=== PATIENT | female | born 1980 | race Caucasian/White ===

== ENCOUNTER 2016-07-26 05:36 | Day surgery (SDC) | payer BC, OTHER ==
[2016-07-23 17:00] VITALS: BMI 40.0
[2016-07-26] MEDS ORDERED: MIDAZOLAM HCL 2 MG/2 ML SINGLE DOSE VIAL ONE ×3 (08:38→09:15)
[2016-07-26] MEDS ORDERED: SUCCINYLCHOLINE CHLORIDE 200 MG/10 ML VIAL ONE (08:39)
[2016-07-26] MEDS ORDERED: PROPOFOL 20 ML ONE ×2 (08:39)
[2016-07-26] MEDS ORDERED: VASOPRESSIN 20 UNITS/ML VIAL IV ONE (08:42)
[2016-07-26] MEDS ORDERED: BACITRACIN/POLYMYXIN OPH OINT 3.5 GM TUBE ONE (08:42)
[2016-07-26] MEDS ORDERED: ceFAZolin SODIUM 1 GM VIAL IVPB ONE (09:00)
[2016-07-26] MEDS ORDERED: oxyCODONE HCL 5 MG TABLET PO PRN ×2 (09:48→10:42)
--- NOTE | 2016-07-26 09:48 | OP ---
Operative Note - Note: Operative Date: 07/26/16 Pre-Operative Diagnosis: stress urinary incontinence Operation: cysto, suburethral sling placement Findings: GRACIELA Implants: Altiss sling Post-Operative Diagnosis: Same as Pre-op Surgeon: Cornel Melendez Anesthesia: Spinal Estimated Blood Loss (mls): 5 Drains & Tubes with Location: 16[address] [facility] Operative Report Dictated: Yes
[2016-07-26] MEDS ORDERED: ELECTROLYTE-148 SOLN 1,000 ML IV SCH (10:00)
[2016-07-26] MEDS ORDERED: ONDANSETRON 4 MG/2 ML VIAL IVPUSH PRN (10:42)
[2016-07-26] MEDS ORDERED: LACTATED RINGERS SOLUTION 1,000 ML IV SCH ×2 (10:45→13:15)
--- NOTE | 2016-07-26 12:44 | OP ---
DATE OF OPERATION: PREOPERATIVE DIAGNOSIS: Stress urinary incontinence. POSTOPERATIVE DIAGNOSIS: Stress urinary incontinence. PROCEDURE: Cystoscopy, suburethral sling placement. SURGEON: Cornel Schneider MD INDICATIONS: The patient is a 36-year-old female with significant stress urinary incontinence who after given treatment options elected to undergo suburethral sling placement with the sling. She understood the risk of bleeding, infection, erosion, stricture formation, potential injury to adjacent organs, potential need for additional procedures, possible persistence of urinary incontinence, and potential De Nilson urge incontinence. She also was made aware of the warning on the mesh material. DESCRIPTION OF PROCEDURE: After informed consent was obtained, the patient was taken to the OR and placed supine on the operating room table. A spinal anesthetic was then given. She was prepped and draped in dorsal lithotomy position. She was given 2 g of Ancef. At this point then a Bowman catheter was inserted. The dressing was injected in the vaginal epithelium suburethrally, and a midline suburethral incision was created approximately 2 cm in length under the urethra. The vaginal epithelium was dissected free from the urethra bilaterally, and using blunt dissection, a space was created so that using digital palpation the obturator membrane could be palpated. This was done bilaterally. At this point with the dissection carried out, attention was turned to inserting the sling. First on the patient's right side, the appropriate trocar was attached to the end of the sling. The trocar was placed at the appropriate angle and pushed until it was tucked in the obturator membrane. At this point, it was given a slight push and a gentle twist to secure the anchor in the patient's established, antibiotics had been given. At this point, the cystoscope was inserted into the patient's obturator membrane. The trocar was then removed, and a gentle tugging of the sling revealed that it was stationary and adequate placement of the anchor. At this point, attention was turned to the patient's left side. In a similar fashion, the trocar was attached to the anchor and using the appropriate angle placed into the incision until the obturator membrane was felt. The trocar was then advanced a little bit to trace the obturator membrane and then twist it a half turn. The trocar was then removed. Again, a gentle tug on the sling revealed that there was adequate placement of the anchor. At this point, a right-angle clamp was placed between the sling and the patient's urethra. It was snug, but it was tension free. At the clamp of the kidneys, I the sling from the urethra. Cystoscopy was then performed. There was no injury to the urethra or the bladder, and bilateral ureteral orifices were seen with efflux. At this point, after filling up the bladder with 200 mL of urine, the patient was asked to cough and sneeze. No incontinence was noted. The excess stitch on the sling was then cut. A Bowman catheter was then reinserted, and the vaginal epithelium was closed with running 2-0 Vicryl suture and then the vaginal packing was then placed. The patient was awoken from anesthesia and transferred to the recovery room in stable condition. There were no complications. Estimated blood loss was 5 mL. CORNEL SCHNEIDER M.D. [id number]
[2016-07-26] MEDS ORDERED: ONDANSETRON 4 MG/2 ML VIAL ONE (13:13)
[2016-07-26 13:15] VITALS: TEMP 98.6
[2016-07-26] MEDS ORDERED: ACETAMINOPHEN 325 MG TABLET (FP) ONE (14:57)
[2016-07-26 18:07] VITALS: BP 144/84; PULSE 84
== END 2016-07-26 18:08 | disposition home or self-care (01) ==
LOC: JASU-SURG 05:36
PROVIDERS: ATTEND Urology
PROC: 0TSD0ZZ Reposition Urethra, Open Approach (ICD-10-PCS; principal; 2016-07-26 08:30)
DX: N39.3 Stress incontinence (female) (male) (principal)
CPT/HCPCS: 94760

== ENCOUNTER 2016-10-26 09:48 | Day surgery (SDC) | payer BC, OTHER ==
[2016-10-24 16:27] VITALS: BMI 40.0
[~2016-10-26 09:48] MED LIST: LIDOCAINE HCL 0.5% EPINEPHRINE 1:200,000 50 ML VIAL IJ ONE; MICROFIBRILLAR COLLAGEN 1 GM EACH ONE
[2016-10-26] MEDS ORDERED: MIDAZOLAM HCL 2 MG/2 ML SINGLE DOSE VIAL ONE ×2 (11:40)
[2016-10-26] MEDS ORDERED: SUCCINYLCHOLINE CHLORIDE 200 MG/10 ML VIAL ONE (11:45)
[2016-10-26] MEDS ORDERED: PROPOFOL 20 ML ONE (11:45)
[2016-10-26] MEDS ORDERED: LIDOCAINE HCL/PF 2% SDV 5ML VIAL ONE (11:45)
[2016-10-26] MEDS ORDERED: ceFAZolin SODIUM 1 GM VIAL IVPB ONE (11:54)
[2016-10-26] MEDS ORDERED: HYDROmorphone HCL/PF 1 MG/ML VIAL (FOR PYXIS CHARGING ONLY) ONE (13:18)
[2016-10-26] MEDS ORDERED: DEXAMETHASONE SOD PHOSPHATE 4 MG/1 ML VIAL ONE (13:30)
[2016-10-26] MEDS ORDERED: LACTATED RINGERS SOLUTION 1,000 ML IV SCH (13:45)
[2016-10-26] MEDS ORDERED: ONDANSETRON 4 MG/2 ML VIAL IVPUSH PRN (13:55)
[2016-10-26] MEDS ORDERED: oxyCODONE HCL 5 MG TABLET PO PRN (13:55)
[2016-10-26] MEDS ORDERED: ACETAMINOPHEN 325 MG TABLET (FP) PO PRN (13:55)
--- NOTE | 2016-10-26 14:20 | OP ---
DATE OF OPERATION: 10/26/2016 SURGICAL ATTENDING: Obi Bui MD SECOND SURGICAL ATTENDING: Iraj Leach MD PREOPERATIVE DIAGNOSIS: Right thyroid nodule. POSTOPERATIVE DIAGNOSIS: Right thyroid nodule. ANESTHESIA: General endotracheal. PROCEDURE: Right hemithyroidectomy and neck ultrasound. DESCRIPTION OF PROCEDURE: Patient was taken into the operating room, placed in the supine position, endotracheally intubated. The eyes were protected. Neck ultrasound was performed, showing a right thyroid nodule which replaced most of the right thyroid lobe but showed no extracapsular extension. No lymphadenopathy was seen and no significant nodule was seen in the contralateral left lobe. The patient was then prepped and draped in the usual sterile fashion. Local anesthesia was administered and a 4-cm horizontal incision was made in a mid neck skin crease. This was carried down through subcutaneous tissues and platysma. Subplatysmal flaps were raised superiorly and inferiorly flap hooks were placed for exposure. The median raphe was incised and the strap muscles on the right side were elevated off the thyroid gland. The recurrent laryngeal nerve and superior laryngeal nerves were identified, dissected, and preserved. The superior, posterior, and inferior attachments were transected with the LigaSure. Every effort was made to preserve the parathyroid glands. The isthmus was transected with a LigaSure and in this way the right thyroid lobe was removed. It was examined for parathyroid tissue and none was found. Hemostasis was achieved with electrocautery and Avitene. The wound was then closed in 3 layers. Sterile dressings were placed. The patient was then awakened, extubated, and taken to recovery in stable condition. Dr. Bui, the attending surgeon, was present throughout the entire procedure. OBI BUI M.D. [id number]
[2016-10-26 16:41] VITALS: TEMP 99
[2016-10-26] MEDS ORDERED: ACETAMINOPHEN 325 MG TABLET (FP) ONE (16:45)
[2016-10-26 18:26] VITALS: BP 125/81; PULSE 86
--- NOTE | 2016-10-29 17:39 | PATH ---
Surgical Pathology Report Patient Name: MIKEY LYNN [facility]. Rec. #: [id number] /Age/Gender: 1980 (Age: 36) / F Account: [id number] Location: [facility] SURGICAL Taken: 10/26/2016 Received: 10/26/2016 Reported: 10/29/2016 Physicians: Raza Christiansen M.D. 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 BACKGROUND MARKED LYMPHOCYTIC THYROIDITIS WITH MORPHOLOGIC FEATURES OF ASUNCION'S THYROIDITIS AND NODULAR HYPERPLASIA. Electronically Signed Surendra Burnette M.D. Gross Description Received in formalin labeled "right thyroid lobe" is a 15 g, 5.3 x 2.7 x 2.5 cm thyroid lobe. The outer capsule is red-brown and intact. Sectioning reveals a focally hemorrhagic dacosta, solid nodule, 2.4 cm in the greatest dimension. The nodule focally abuts the outer capsule but does not appear to invade through it. The remaining thyroid parenchyma is dacosta-red with mottled, beefy appearance. Combo Welder sections are sequentially submitted in 9 cassettes. /10/26/2016 saudi10/26/2016
== END 2016-10-26 18:26 | disposition home or self-care (01) ==
LOC: JASU-SURG 09:48
PROVIDERS: ATTEND Surgery
PROC: 0GTH0ZZ Resection of Right Thyroid Gland Lobe, Open Approach (ICD-10-PCS; 2016-10-26)
PROC: 0GBG0ZZ Excision of Left Thyroid Gland Lobe, Open Approach (ICD-10-PCS; principal; 2016-10-26 11:00)
DX: D34 Benign neoplasm of thyroid gland (principal)
CPT/HCPCS: 84703; 88307-TC; 94760

== ENCOUNTER 2017-02-12 08:41 | Inpatient (IN) | payer BC, OTHER ==
[2017-02-08 10:44] VITALS: BMI 40.6
--- NOTE | 2017-02-12 12:14 | EKG ---
Test Reason : Blood Pressure : / mmHG Vent. Rate : 081 BPM Atrial Rate : 081 BPM P-R Int : 154 ms QRS Dur : 092 ms QT Int : 364 ms P-R-T Axes : 032 074 022 degrees QTc Int : 422 ms NORMAL SINUS RHYTHM NORMAL ECG NO PREVIOUS ECGS AVAILABLE Confirmed by MISAEL MC, JESUS ([id number]) on 02/12/2017 12:14:23 PM Referred By: Iraj Leach Confirmed By:JESUS DOUGLAS MD
--- NOTE | 2017-02-12 13:49 | HP ---
Admitting History and Physical - Admission Chief Complaint: Morbid obesity History of Present Illness: 36 female presents for bariatric surgery History Source: Patient Limitations to Obtaining History: No Limitations - Past Medical History ...LMP: 01/30/17 Endocrine: Yes: Hypothyroidism - Past Surgical History Additional Past Surgical History: Bladder mesh, tubal ligation - Smoking History Smoking history: Never smoked Have you smoked in the past 12 months: No - Alcohol/Substance Use Hx Alcohol Use: No Home Medications - Allergies Allergies/Adverse Reactions: Allergies Allergy/AdvReac Type Severity Reaction Status Date / Time No Known Drug Allergies Allergy Verified 10/26/16 10:14 - Home Medications Home Medications: Ambulatory Orders Thyroid [[place] Thyroid] 120 mg PO DAILY 07/23/16 Acetaminophen [Tylenol] 650 mg PO PRN PRN 07/26/16 Family Disease History - Family Disease History Family History: Unremarkable Review of Systems - Review of Systems Constitutional: denies: Chills, Fever Eyes: reports: No Symptoms HENT: reports: No Symptoms Neck: reports: No Symptoms Cardiovascular: denies: Chest Pain Respiratory: denies: Cough Gastrointestinal: denies: Abdominal Pain Neurological: reports: No Symptoms Pain Intensity: 0 Physical Examination Vital Signs: Vital Signs Temperature 97.7 F 02/12/17 12:18 Pulse Rate 90 02/12/17 12:18 Respiratory Rate 18 02/12/17 12:18 Blood Pressure 126/73 02/12/17 12:18 O2 Sat by Pulse Oximetry (%) Constitutional: Yes: Calm HENT: Yes: WNL Neck: Yes: Supple, Other (Well healed scar from thyroidectomy) Cardiovascular: Yes: Regular Rate and Rhythm Respiratory: Yes: CTA Bilaterally Gastrointestinal: Yes: Soft, Abdomen, Obese Neurological: Yes: Alert, Oriented Problem List - Problems (1) Morbid obesity due to excess calories Code(s): E66.01 - MORBID (SEVERE) OBESITY DUE TO EXCESS CALORIES Assessment/Plan For laparoscopic vertical sleeve gastrectomy
[2017-02-12] MEDS ORDERED: BUPIVACAINE HCL/PF 0.5% (5MG/ML) 10 ML VIAL ONE (14:40)
[2017-02-12] MEDS ORDERED: ceFAZolin SODIUM 1 GM VIAL IVPB ONE (15:17)
[2017-02-12] MEDS ORDERED: BUPIVACAINE HCL/PF 0.5% (5MG/ML) 10 ML VIAL IJ ONE (15:35)
[2017-02-12] MEDS ORDERED: fentaNYL CITRATE 250 MCG/5 ML VIAL ONE (15:43)
[2017-02-12] MEDS ORDERED: ONDANSETRON 4 MG/2 ML VIAL ONE (16:51)
--- NOTE | 2017-02-12 16:59 | OP ---
Operative Note - Note: Operative Date: 02/12/17 Pre-Operative Diagnosis: Morbid obesity Operation: Laparoscopic vertical sleeve gastrectomy, wedge liver biopsy, EGD Post-Operative Diagnosis: Other (Morbid obesity, hepatomegaly) Surgeon: Iraj Leach Manager Of Case: Pollo Lee Anesthesia: General Specimens Removed: Greater curvature of the stomach, wedge liver biopsy Estimated Blood Loss (mls): 30 Drains & Tubes with Location: 36 Fr [address] Operative Report Dictated: Yes
[2017-02-12] MEDS ORDERED: HYDROmorphone HCL CARPU-JECT 1 MG/1 ML DISP.SYRIN IVPUSH PRN (17:28)
[2017-02-12] MEDS: HYDROmorphone HCL CARPU-JECT 2 MG/1 ML DISP.SYRIN IVPUSH PRN ×2 (17:30→17:45)
[2017-02-12] MEDS: METOCLOPRAMIDE HCL INJECTION 10 MG/2 ML VIAL IVPUSH SCH ×2 (17:40→23:24)
[2017-02-12] MEDS ORDERED: PROMETHAZINE HCL 25 MG/1 ML VIAL ONE (17:46)
[2017-02-12] MEDS ORDERED: PROMETHAZINE HCL 25 MG/1 ML VIAL IVPUSH PRN (17:48)
[2017-02-12] MEDS: ACETAMINOPHEN 1000 MG/100 ML VIAL (NON FORMULARY) IVPB SCH ×2 (18:00→23:24)
[2017-02-12 18:17] LABS: MCH 28.2 pg (25.7-33.7); MCHC 32.9 g/dl (32.0-36.0); MEAN CELL VOLUME 85.7 fl (80-96); MEAN PLT VOLUME 10.1 fl (7.5-11.1); PLATELET COUNT 217 K/MM3 (134-434); RDW 14.7 % (11.6-15.6); WHITE BLOOD COUNT 6.2 K/mm3 (4.0-10.0)
[2017-02-12 19:31] LABS: ALBUMIN 3.1 g/dl (3.4-5.0); ANION GAP 7 (8-16); BILIRUBIN,TOTAL 0.5 mg/dL (0.2-1.0); CALCIUM 7.8 mg/dL (8.5-10.1); CO2 27 mmol/L (21-32); CREATININE 0.6 mg/dL (0.55-1.02); GLUCOSE,RANDOM 106 mg/dL (74-106); SGOT/AST 90 U/L (15-37); SGPT/ALT 128 U/L (12-78); TOT PROT 6.6 g/dl (6.4-8.2)
[2017-02-12 19:32] LABS: ALK PHOS 75 U/L (45-117)
[2017-02-12] MEDS: SODIUM CHLORIDE 1,000 ML IV SCH (20:00)
[2017-02-12] MEDS: HYDROmorphone HCL CARPU-JECT 1 MG/1 ML DISP.SYRIN IVPB PRN (21:08)
[2017-02-12] MEDS: ENOXAPARIN NA (PORCINE) 40 MG/0.4 ML DISP.SYRIN SQ SCH (22:21)
[2017-02-12] MEDS: ONDANSETRON 4 MG/2 ML VIAL IVPUSH SCH (22:21)
[2017-02-12] MEDS: FAMOTIDINE 20 MG/50 ML IVPB 20 MG/50 ML MG IVPB SCH (22:22)
[2017-02-13] MEDS: ONDANSETRON 4 MG/2 ML VIAL IVPUSH SCH ×6 (01:15→23:00)
[2017-02-13] MEDS: HYDROmorphone HCL CARPU-JECT 1 MG/1 ML DISP.SYRIN IVPB PRN ×3 (02:53→19:40)
[2017-02-13] MEDS: ACETAMINOPHEN 1000 MG/100 ML VIAL (NON FORMULARY) IVPB SCH ×2 (05:41→12:01)
[2017-02-13] MEDS: METOCLOPRAMIDE HCL INJECTION 10 MG/2 ML VIAL IVPUSH SCH ×4 (06:00→23:00)
--- NOTE | 2017-02-13 07:08 | SURG ---
Surgery Casino Shift Manager Note Casino Shift Manager: Pollo Lee PA-C Date of Service: 02/13/17 Diagnosis: Morbid obesity Procedure: Laparoscopic vertical sleeve gastrectomy, wedge liver biopsy, EGD I was present for the entirety of the operative procedure. For further detail, please refer to operative report. Visit type - Case Type Case Type: Scheduled Admission - New patient This patient is new to me today: Yes Date on this admission: 02/13/17
[2017-02-13 07:19] LABS: MCH 27.8 pg (25.7-33.7); MCHC 33.1 g/dl (32.0-36.0); MEAN PLT VOLUME 10.1 fl (7.5-11.1); PLATELET COUNT 209 K/MM3 (134-434); RDW 14.8 % (11.6-15.6); WHITE BLOOD COUNT 9.2 K/mm3 (4.0-10.0)
[2017-02-13 07:52] LABS: ALBUMIN 3.1 g/dl (3.4-5.0); ALK PHOS 77 U/L (45-117); ANION GAP 7 (8-16); BILIRUBIN,TOTAL 0.8 mg/dL (0.2-1.0); CALCIUM 7.8 mg/dL (8.5-10.1); CO2 26 mmol/L (21-32); CREATININE 0.5 mg/dL (0.55-1.02); GLUCOSE,RANDOM 107 mg/dL (74-106); SGOT/AST 81 U/L (15-37); SGPT/ALT 124 U/L (12-78); TOT PROT 6.6 g/dl (6.4-8.2)
--- NOTE | 2017-02-13 08:08 | SPEC ---
DATE OF OPERATION: 02/12/2017 SURGEON: Iraj Laech M.D. ASSISTANTS: FLORENTIN Salmeron Amber PREOPERATIVE DIAGNOSIS: Morbid obesity. POSTOPERATIVE DIAGNOSIS: Morbid obesity and hepatomegaly. PROCEDURE PERFORMED: Laparoscopic vertical sleeve gastrectomy, wedge liver biopsy of the left lobe of the liver, and upper endoscopy/esophagogastroduodenoscopy. ESTIMATED BLOOD LOSS: 30 mL. DRAINS: None. ANESTHESIA: GET. SPECIMENS: Greater curvature of the stomach and wedge liver biopsy of the left lobe of the liver. REASON FOR PROCEDURE: The patient is a 36-year-old female who presented for weight loss options. In describing the different options, she decided to proceed with a laparoscopic, possible open vertical sleeve gastrectomy. RISKS AND BENEFITS: After describing the different options for weight loss management, the patient decided to proceed with a laparoscopic, possible open vertical sleeve gastrectomy. The patient was seen by the respective subspecialties and cleared for surgery. The risks and benefits of the procedure were explained. These included bleeding, infection, hernia, PA, DVT, PE, injury to surrounding structures including the liver, colon, bowel, spleen, esophagus, vessel injury, nerve injury, weight regain, gastric leak, staple line leak, sleeve leak, obstruction, vitamin deficiency, hair loss and as some of the possible complications. The patient understood and signed informed consent. DESCRIPTION OF PROCEDURE: The patient was placed supine on the operating room table. The patient underwent general endotracheal intubation. A Bowman catheter was inserted. The arms were brought out at 90 degrees and secured. A footboard was placed and the legs were secured laterally with padding. The abdomen was prepped and draped in the usual sterile fashion. A timeout was performed. An incision was made in the left upper quadrant and a Veress needle inserted. Pneumoperitoneum was established. Subsequently, the Veress needle was removed and a 12-mm trocar was placed. The laparoscopic camera was then inserted and inspection of the abdominal cavity was performed. An incision was then made in the supraumbilical area and a 15-mm trocar was placed under direct visualization. A 5-mm trocar was then placed in the right upper quadrant and a 5-mm trocar was placed below the left subcostal margin. A stab wound was made in the subxiphoid area and a Glenda clamp inserted and removed to dilate the tract. A Tha liver retractor was inserted. The post was secured at the bedside by the nursing staff. The patient was placed in steep reverse Trendelenburg position and the Tha liver retractor was used to secure the liver towards the anterior abdominal wall. The pylorus was identified and 6 cm proximal to it, the lesser sac was entered using the LigaSure device. All lateral attachments to the greater curvature of the stomach, including the short gastric vessels, were ligated using the LigaSure device toward the gastrosplenic and gastrophrenic ligaments. Once this was done in its entirety, it was confirmed that all tubes within the nasal or oropharyngeal cavity, including a temperature probe, was removed by Anesthesia. The bougie was then inserted by Anesthesia. Transection of the stomach was then begun staying adjacent to the bougie but away from the angularis. Transection of the stomach was performed near the portion of the stomach where the lesser sac was entered. Two laparoscopic Endo-BENJAMIN black pamela were used at this location. Laparoscopic Endo BENJAMIN purple staple loads were then used for the remainder of the transection until the greater curvature of the stomach was fully transected. This was done staying close to the bougie. Care was taken to stay away from the angle of His cephalad. The staple line was then inspected. Hemostasis was identified. A leak test was then performed. It was clamped distally to the staple line. Irrigation solution was placed in the left upper quadrant and air was insufflated by Anesthesia into the sleeve. No leaks were identified. No obstruction was identified. This was done through the entirety of the staple line. At this point, the irrigation solution was suctioned and again, hemostasis was noted. A wedge liver biopsy was then performed. The left lobe of the liver was identified and a portion of the edge was grasped. Using electrocautery, a wedge of the liver was excised. This was removed and sent off the field as specimen. Hemostasis at the site of the wedge liver biopsy was attained using electrocautery. The 15-mm supraumbilical trocar was then removed and the greater curvature specimen removed from the site using a sponge stick de los santos. The specimen was inspected and a Veress needle inserted. The specimen insufflated adequately and no leak was identified. The staple line was noted to be intact. A Topher-Michael device was then used to temporarily close the fascia with a 0 Vicryl suture at the site. The 15-mm trocar was then reinserted and the 12-mm trocar in the left upper quadrant was removed. The fascia at this site was then closed using the Topher-Michael device with a 0 Vicryl suture. Again, hemostasis was noted. The Tha liver retractor was then removed under direct visualization. Pneumoperitoneum was desufflated and the fascial sutures were secured. Hemostasis was noted at all incision sites and Marcaine was injected at all incision sites. All incision sites were closed using 4-0 Biosyn. Sterile dressings were applied. In addition, upper endoscopy/EGD was used to further evaluate the gastric sleeve. The endoscope was inserted into the patient's mouth, and the esophagus, GE junction and gastric sleeve pouch were completely inspected. The staple line was noted to be fully intact. There was no leak or obstruction noted. The stomach was suctioned and the endoscope removed. The patient tolerated the procedure well and was transferred to the recovery room in stable condition with the Bowman catheter intact. The patient was transferred to telemetry for further monitoring. Kandi [id number]
--- NOTE | 2017-02-13 09:19 | CONSULT ---
Consult - History of Present Illness History of Present Illness: 36 y/o female with h/o obesity and hypothyroidism admitted for sleeve c/o postop pain denies any chest pain or sob - Past Medical History Cardio/Vascular: No: HTN, Hyperlipdemia Pulmonary: No: Asthma, COPD Gastrointestinal: No: Gastritis, GI Bleed ...LMP: 01/30/17 Endocrine: Yes: Hypothyroidism, Other (obesity) - Alcohol/Substance Use Hx Alcohol Use: No - Smoking History Smoking history: Never smoked Have you smoked in the past 12 months: No Home Medications - Allergies Allergies/Adverse Reactions: Allergies Allergy/AdvReac Type Severity Reaction Status Date / Time No Known Drug Allergies Allergy Verified 10/26/16 10:14 - Home Medications Home Medications: Ambulatory Orders Thyroid [[place] Thyroid] 120 mg PO DAILY 07/23/16 Acetaminophen [Tylenol] 650 mg PO PRN PRN 07/26/16 Famotidine [Pepcid] 20 mg PO BID #60 tablet 02/12/17 Oxycodone HCl/Acetaminophen [Percocet 5-325 mg Tablet] 1 - 2 tab PO Q6H #28 tab MDD 4 02/12/17 Physical Exam Vital Signs: Vital Signs Temperature 98.1 F 02/13/17 08:39 Pulse Rate 78 02/13/17 08:39 Respiratory Rate 20 02/13/17 08:39 Blood Pressure 139/59 02/13/17 08:39 O2 Sat by Pulse Oximetry (%) 98 02/12/17 21:00 Cardiovascular: Yes: Regular Rate and Rhythm Respiratory: Yes: Regular, CTA Bilaterally Gastrointestinal: Yes: Soft, Hypoactive Bowel Sounds, Other (dressing intact dry minimal tenderness) Edema: No Labs: CBC, BMP 02/13/17 05:05 02/13/17 05:05 Problem List - Problems (1) Hypothyroidism Assessment/Plan: oral meds per surgery im synthroid Code(s): E03.9 - HYPOTHYROIDISM, UNSPECIFIED (2) Morbid obesity due to excess calories Assessment/Plan: further plan per surgery Code(s): E66.01 - MORBID (SEVERE) OBESITY DUE TO EXCESS CALORIES
--- NOTE | 2017-02-13 09:21 | PN ---
Progress Note (short form) - Note Progress Note: POD #1 Alert. Doing well. No acute events since surgery per RN notes. She's oob and ambulating unassisted. Voiding spontaneously. C/o of mild incisional tenderness. Adequate pain control via prn meds. Denies n/v/f/c, CP or SOB. Vital Signs Temp 98.1 F 02/13/17 08:39 Pulse 78 02/13/17 08:39 Resp 20 02/13/17 08:39 BP 139/59 02/13/17 08:39 Pulse Ox 98 02/12/17 21:00 Intake & Output 02/12/17 02/12/17 02/13/17 11:59 23:59 11:59 Intake Total 1800 600 Output Total 30 Balance 1770 600 Weight 204 lb 2 oz Intake: IV 1800 350 Normal Saline - 1,000 ml 350 @ 150 mls/hr IV ASDIR MONI Rx#:[id number] IVPB 250 Output: Urine 0 Estimated Blood Loss 30 Other: Voiding Method Toilet Bowel Movement No No Weight Measurement Method Standing Scale UGI: no leak Gen: nad abd: all surgical ports intact LE; soft. nt bilat Problem List - Problems (1) Morbid obesity due to excess calories Assessment/Plan: POD #1 s/p Laparosocpic vertical sleeve gastrectomy w/ liver bx Bariatric stage 1 diet ordered Cont oob and ambulate Incentive spirometer dc planning Code(s): E66.01 - MORBID (SEVERE) OBESITY DUE TO EXCESS CALORIES <Ca Davis - Last Filed: 02/13/17 09:22> - Note Progress Note: POD 1 No nausea Pain controlled AVSS Abd soft CBC, BMP 02/13/17 05:05 02/13/17 05:05 UGI no leak/obstruction Clears OOB <Iraj Leach - Last Filed: 02/13/17 21:58> Problem List - Problems (1) Morbid obesity due to excess calories Code(s): E66.01 - MORBID (SEVERE) OBESITY DUE TO EXCESS CALORIES <Iraj Leach - Last Filed: 02/13/17 21:58>
[2017-02-13] MEDS ORDERED: ACETAMINOPHEN 325 MG TABLET (FP) PO PRN (09:24)
--- NOTE | 2017-02-13 09:43 | PN ---
Progress Note (short form) - Note Progress Note: Anesthesia POD#1 S/P Laproscopic Sleeve under GA VSS,no N/V,pain is under control. Food is advanced. No complications to anesthesia seen. Kati Jamil MD.
[2017-02-13] MEDS: ENOXAPARIN NA (PORCINE) 40 MG/0.4 ML DISP.SYRIN SQ SCH ×2 (09:55→22:59)
[2017-02-13] MEDS: FAMOTIDINE 20 MG/50 ML IVPB 20 MG/50 ML MG IVPB SCH ×2 (09:55→23:00)
[2017-02-13] MEDS ORDERED: THYROID 30 MG TABLET PO SCH (10:00)
--- NOTE | 2017-02-13 11:28 | DS ---
Physical Examination Vital Signs: Vital Signs Temperature 98.1 F 02/13/17 08:39 Pulse Rate 78 02/13/17 08:39 Respiratory Rate 20 02/13/17 08:39 Blood Pressure 139/59 02/13/17 08:39 O2 Sat by Pulse Oximetry (%) 98 02/13/17 08:00 Constitutional: Yes: Well Nourished, Calm Cardiovascular: Yes: Regular Rate and Rhythm Respiratory: Yes: Regular Gastrointestinal: Yes: Soft Wound/Incision: Yes: Dressing Dry and Intact Labs: CBC, BMP 02/13/17 05:05 02/13/17 05:05 Discharge Summary Reason For Visit: MORBID OBESITY Current Active Problems Morbid obesity due to excess calories (Acute) Hepatomegaly Procedures: Principal: Vertical sleeve gastrectomy, wedge liver biopsy, EGD Condition: Stable - Instructions Diet, Activity, Other Instructions: [address] [facility] Iraj Leach M.D. [address] [place] [address], [address] [facility] [address] [facility] [place] [address] Robotic, Bariatric and General Surgery Postoperative Instructions for Bariatric Surgery Activity: Resume normal everyday activity as tolerated. You may walk and climb stairs without any limitation. We encourage you to walk as often as you can Do not lift anything more than 10 pounds for 8 weeks. At that time, you can return to full activity, including the gym, without limitation. Do not drive a motor vehicle while taking prescribes narcotic pain medication. Wound Care: If you have a bandage in place, leave it on for 3 days. At that time you may remove the outer bandage. If there are strips of tape on the skin after removing the outer bandage, leave them in place. They will fall off by themselves. Do not remove them. If there is clear glue on the skin after removing the outer bandage, leave it in place. Do not pick at it or peel it off. You may shower after taking the outer bandage off, 3 days after your surgery. If incisions become red, warm or open, please call the office. Diet: Continue a sugar-free, non-carbonated Clear liquid diet three times a day for the first week-Stage I diet. In addition, you should drink 8 ounces of water every hour. When drinking, sips should be slow and steady, not large and quick. After the first week, call the office to be advanced to the next dietary stage. Do not advance stages until instructed. Your diet will be advanced over the phone each week. Medications/Pain Management: You may resume previous medications unless told otherwise. The pills may be swallowed whole or broken if scored. You may take the prescribed narcotic pain medication as needed. If the narcotic medication is not needed for pain control, you may take Tylenol. Avoid all other pain medications including Advil, Ibuprofen, Motrin, Aspirin, Naprosyn, Aleve, Celebrex. You will receive Pepcid. Please take this twice a day as prescribed. Dizziness,Headaches/Gas Pain: Make sure you are getting enough fluids daily. Patients on diuretics or water pills may need medication adjusted. Some fluids such as broth or Gatorade may help. Gas pains are common in the first few weeks after surgery. At times they can be worse than surgical pain. Walking can help. You can also use Mylanta, Maalox, or Gas-X. Vomiting/Nausea: This may occur if you eat too fast, don't chew, or eat too much. Go back to fluids. If the vomiting or nausea persists, call the office. Constipation/Diarrhea: You may experience a change in bowel habits. Many things affect this, including a decrease in food intake, not enough fluid and taking pain medication. Some people experience diarrhea after the barium swallow in x-ray. If either persist, call the office. Follow up: Call the office at [phone] for an appointment 2 weeks after your surgical procedure. Disposition: HOME - Home Medications Comprehensive Discharge Medication List: Ambulatory Orders Thyroid [[place] Thyroid] 120 mg PO DAILY 07/23/16 Acetaminophen [Tylenol] 650 mg PO PRN PRN 07/26/16 Famotidine [Pepcid] 20 mg PO BID #60 tablet 02/12/17 Oxycodone HCl/Acetaminophen [Percocet 5-325 mg Tablet] 1 - 2 tab PO Q6H #28 tab MDD 4 02/12/17
[2017-02-13] MEDS: ACETAMINOPHEN 325 MG TABLET (FP) PO PRN ×2 (11:59→15:58)
[2017-02-13] MEDS: SODIUM CHLORIDE 1,000 ML IV SCH ×2 (12:00→17:18)
[2017-02-13] MEDS: oxyCODONE HCL 5 MG TABLET PO PRN ×2 (12:00→15:58)
[2017-02-13] MEDS ORDERED: ACETAMINOPHEN 325 MG TABLET (FP) PO ONE (18:00)
[2017-02-13] MEDS: LEVOTHYROXINE SODIUM 100 MCG VIAL IM SCH (18:29)
[2017-02-14] MEDS: ONDANSETRON 4 MG/2 ML VIAL IVPUSH SCH ×7 (02:21→23:40)
[2017-02-14] MEDS: ACETAMINOPHEN 325 MG TABLET (FP) PO PRN ×6 (02:22→23:19)
[2017-02-14] MEDS: oxyCODONE HCL 5 MG TABLET PO PRN ×6 (02:22→23:18)
[2017-02-14] MEDS: METOCLOPRAMIDE HCL INJECTION 10 MG/2 ML VIAL IVPUSH SCH ×4 (05:58→22:29)
--- NOTE | 2017-02-14 08:40 | PN ---
Progress Note, Physician History of Present Illness: 36 y/o female with h/o obesity and hypothyroidism admitted for sleeve c/o postop pain denies any chest pain or sob - Current Medication List Current Medications: Active Medications Acetaminophen (Tylenol -) 650 mg PO PRN PRN PRN Reason: PAIN Acetaminophen (Tylenol -) 325 mg PO Q4H PRN PRN Reason: FEVER OR PAIN Last Admin: 02/14/17 05:58 Dose: 325 mg Enoxaparin Sodium (Lovenox -) 40 mg SQ BID [facility] Last Admin: 02/13/17 22:59 Dose: 40 mg Hydromorphone HCl (Dilaudid Injection -) 1 mg IVPB Q3H PRN PRN Reason: PAIN Last Admin: 02/13/17 19:40 Dose: 1 mg Hydromorphone HCl (Dilaudid Injection -) 1 mg IVPUSH Q10M PRN Last Admin: 02/12/17 17:45 Dose: 1 mg Famotidine/Sodium Chloride (Pepcid 20 Mg Premixed Ivpb -) 20 mg in 50 mls @ 100 mls/hr IVPB BID [facility] Last Admin: 02/13/17 23:00 Dose: 100 mls/hr Sodium Chloride (Normal Saline -) 1,000 mls @ 75 mls/hr IV ASDIR [facility] Last Admin: 02/13/17 12:00 Dose: 75 mls/hr Levothyroxine Sodium (Synthroid Injection -) 50 mcg IM DAILY [facility] Last Admin: 02/13/17 18:29 Dose: 50 mcg Metoclopramide HCl (Reglan Injection -) 10 mg IVPUSH Q6H [facility] Last Admin: 02/14/17 05:58 Dose: 10 mg Ondansetron HCl (Zofran Injection) 4 mg IVPUSH Q4H [facility] Last Admin: 02/14/17 06:06 Dose: 4 mg Oxycodone HCl (Roxicodone -) 5 mg PO Q4H PRN PRN Reason: PAIN Last Admin: 02/14/17 05:57 Dose: 5 mg Promethazine HCl (Phenergan Injection -) 12.5 mg IVPUSH Q6H PRN PRN Reason: NAUSEA-FOR RESCUE AFTER 15 MIN Last Admin: 02/12/17 17:50 Dose: 12.5 mg Thyroid ([facility] Thyroid -) 120 mg PO DAILY MONI - Objective Vital Signs: Vital Signs Temperature 100.1 F H 02/14/17 06:49 Pulse Rate 87 02/14/17 06:49 Respiratory Rate 20 02/14/17 06:49 Blood Pressure 139/82 02/14/17 06:49 O2 Sat by Pulse Oximetry (%) 98 02/13/17 08:00 Cardiovascular: Yes: Regular Rate and Rhythm Respiratory: Yes: Regular, CTA Bilaterally Gastrointestinal: Yes: Normal Bowel Sounds, Soft, Tenderness, Tenderness, Rebound Edema: No Neurological: Yes: Alert, Oriented Labs: CBC, BMP 02/13/17 05:05 02/13/17 05:05 Problem List - Problems (1) Hypothyroidism Assessment/Plan: oral meds per surgery im synthroid Code(s): E03.9 - HYPOTHYROIDISM, UNSPECIFIED (2) Morbid obesity due to excess calories Assessment/Plan: further plan per surgery Code(s): E66.01 - MORBID (SEVERE) OBESITY DUE TO EXCESS CALORIES (3) Postoperative abdominal pain Assessment/Plan: KUB SURGICAL FOLLOW UP Code(s): R10.9 - UNSPECIFIED ABDOMINAL PAIN; G89.18 - OTHER ACUTE POSTPROCEDURAL PAIN
[2017-02-14] MEDS: ENOXAPARIN NA (PORCINE) 40 MG/0.4 ML DISP.SYRIN SQ SCH ×2 (09:28→21:10)
[2017-02-14] MEDS: FAMOTIDINE 20 MG/50 ML IVPB 20 MG/50 ML MG IVPB SCH ×2 (09:33→21:10)
[2017-02-14] MEDS: LEVOTHYROXINE SODIUM 100 MCG VIAL IM SCH (09:33)
--- NOTE | 2017-02-14 12:52 | PN ---
Progress Note (short form) - Note Progress Note: POD 2 Still in pain requiring IV pain medication On clears Vital Signs Period Temp Pulse Resp BP Sys/Delgado Pulse Ox Last 24 Hr 98.2 F-101.8 F 78-99 20-20 120-154/72-87 97 Abd soft CBC, BMP 02/13/17 05:05 02/13/17 05:05 AXR- no obstruction, WNL OOB Pain control Will monitor If pain improves, possible discharge in am Problem List - Problems (1) Morbid obesity due to excess calories Code(s): E66.01 - MORBID (SEVERE) OBESITY DUE TO EXCESS CALORIES
--- NOTE | 2017-02-14 15:23 | PATH ---
Surgical Pathology Report Patient Name: MIKEY LYNN [facility]. Rec. #: [id number] /Age/Gender: 1980 (Age: 36) / F Account: [id number] Location: 4 W TELEMETRY U Taken: 02/12/2017 Received: 02/13/2017 Reported: 02/14/2017 Physicians: Iraj Leach M.D. Specimen(s) Received A: GREATER CURVATURE OF STOMACH B: LIVER BIOPSY Clinical History Preoperative diagnosis: Morbid obesity Final Diagnosis A. STOMACH, GREATER CURVATURE, SLEEVE GASTRECTOMY: PORTION OF GASTRIC FUNDUS WITH NO PATHOLOGIC CHANGES. IMMUNOSTAIN FOR H. PYLORI IS NEGATIVE. B. LIVER, WEDGE BIOPSY: MACROVESICULAR STEATOHEPATITIS, MODERATE (GRADE 2 OF 3). TRICHROME STAIN DEMONSTRATES PERISINUSOIDAL/PERICELLULAR FIBROSIS, WITH PORTAL AND PERIPORTAL FIBROSIS BUT NO BRIDGING FIBROSIS (STAGE II OF 4). IRON STAIN SHOWS NO IRON DEPOSITION. Comment: Recommend correlation with clinical findings and follow up as clinically indicated. Electronically Signed Franklin Freeman M.D. Gross Description A. Received in formalin, labeled "greater curvature of stomach," is a 85 gram, 15.0 x 4.0 x 2.3 cm. portion of stomach with a stapled margin of resection. The serosa is dacosta-serrano with minimal attached fat. The mucosa is dacosta-pink with normal folds. No mucosal masses are identified. Executive Staff Assistant sections are submitted in one cassette. B. Received in formalin labeled "liver biopsy," is a 2.5 x 2.2 x 0.3 cm aggregate of dacosta-brown fragments of liver tissue. The specimen is submitted in toto in one cassette. 02/13/2017 saudi02/13/2017
[2017-02-14] MEDS: SODIUM CHLORIDE 1,000 ML IV SCH ×2 (17:09→17:10)
[2017-02-15] MEDS: ONDANSETRON 4 MG/2 ML VIAL IVPUSH SCH ×3 (04:32→09:21)
[2017-02-15] MEDS: ACETAMINOPHEN 325 MG TABLET (FP) PO PRN (04:33)
[2017-02-15] MEDS: oxyCODONE HCL 5 MG TABLET PO PRN ×2 (04:33→09:19)
[2017-02-15] MEDS: METOCLOPRAMIDE HCL INJECTION 10 MG/2 ML VIAL IVPUSH SCH ×2 (04:36→10:48)
--- NOTE | 2017-02-15 09:15 | DS ---
Physical Examination Vital Signs: Vital Signs Temperature 97.9 F 02/15/17 05:00 Pulse Rate 79 02/15/17 05:00 Respiratory Rate 20 02/15/17 05:00 Blood Pressure 120/73 02/15/17 05:00 O2 Sat by Pulse Oximetry (%) 96 02/14/17 21:00 Constitutional: Yes: Calm HENT: Yes: WNL Neck: Yes: Supple Cardiovascular: Yes: Regular Rate and Rhythm Respiratory: Yes: CTA Bilaterally Gastrointestinal: Yes: Soft Wound/Incision: Yes: Dressing Dry and Intact Neurological: Yes: Alert, Oriented Labs: CBC, BMP 02/13/17 05:05 02/13/17 05:05 Discharge Summary Reason For Visit: MORBID OBESITY Current Active Problems Hepatomegaly (Acute) Hypothyroidism (Acute) Morbid obesity due to excess calories (Acute) Postoperative abdominal pain (Acute) Procedures: Principal: Vertcal sleeve gastrectomy, wedge liver biopsy, EGD Condition: Stable - Instructions Diet, Activity, Other Instructions: [address] [place] [address] Iraj Leach M.D. [address] [place] [address], 5[address] Floor [facility] [address] Weight Loss [facility] [place] [address] Robotic, Bariatric and General Surgery Postoperative Instructions for Bariatric Surgery Activity: Resume normal everyday activity as tolerated. You may walk and climb stairs without any limitation. We encourage you to walk as often as you can Do not lift anything more than 10 pounds for 8 weeks. At that time, you can return to full activity, including the gym, without limitation. Do not drive a motor vehicle while taking prescribes narcotic pain medication. Wound Care: If you have a bandage in place, leave it on for 3 days. At that time you may remove the outer bandage. If there are strips of tape on the skin after removing the outer bandage, leave them in place. They will fall off by themselves. Do not remove them. If there is clear glue on the skin after removing the outer bandage, leave it in place. Do not pick at it or peel it off. You may shower after taking the outer bandage off, 3 days after your surgery. If incisions become red, warm or open, please call the office. Diet: Continue a sugar-free, non-carbonated Clear liquid diet three times a day for the first week-Stage I diet. In addition, you should drink 8 ounces of water every hour. When drinking, sips should be slow and steady, not large and quick. After the first week, call the office to be advanced to the next dietary stage. Do not advance stages until instructed. Your diet will be advanced over the phone each week. Medications/Pain Management: You may resume previous medications unless told otherwise. The pills may be swallowed whole or broken if scored. You may take the prescribed narcotic pain medication as needed. If the narcotic medication is not needed for pain control, you may take Tylenol. Avoid all other pain medications including Advil, Ibuprofen, Motrin, Aspirin, Naprosyn, Aleve, Celebrex. You will receive Pepcid. Please take this twice a day as prescribed. Dizziness,Headaches/Gas Pain: Make sure you are getting enough fluids daily. Patients on diuretics or water pills may need medication adjusted. Some fluids such as broth or Gatorade may help. Gas pains are common in the first few weeks after surgery. At times they can be worse than surgical pain. Walking can help. You can also use Mylanta, Maalox, or Gas-X. Vomiting/Nausea: This may occur if you eat too fast, don't chew, or eat too much. Go back to fluids. If the vomiting or nausea persists, call the office. Constipation/Diarrhea: You may experience a change in bowel habits. Many things affect this, including a decrease in food intake, not enough fluid and taking pain medication. Some people experience diarrhea after the barium swallow in x-ray. If either persist, call the office. Follow up: Call the office at [phone] for an appointment 2 weeks after your surgical procedure. Disposition: HOME - Home Medications Comprehensive Discharge Medication List: Ambulatory Orders Thyroid [[place] Thyroid] 120 mg PO DAILY 07/23/16 Acetaminophen [Tylenol] 650 mg PO PRN PRN 07/26/16 Famotidine [Pepcid] 20 mg PO BID #60 tablet 02/12/17 Oxycodone HCl/Acetaminophen [Percocet 5-325 mg Tablet] 1 - 2 tab PO Q6H #28 tab MDD 4 02/12/17 Ondansetron HCl [Zofran] 8 mg PO TID #60 tablet 02/15/17
--- NOTE | 2017-02-15 09:15 | PN ---
Progress Note (short form) - Note Progress Note: POD 3 Pain controlled No nausea On clears Vital Signs Period Temp Pulse Resp BP Sys/Delgado Pulse Ox Last 24 Hr 97.9 F-99.8 F 79-93 20-20 120-145/62-84 96 Abd soft CBC, BMP 02/13/17 05:05 02/13/17 05:05 Pain now controlled Discharge home Problem List - Problems (1) Morbid obesity due to excess calories Code(s): E66.01 - MORBID (SEVERE) OBESITY DUE TO EXCESS CALORIES
[2017-02-15] MEDS: FAMOTIDINE 20 MG/50 ML IVPB 20 MG/50 ML MG IVPB SCH (09:20)
[2017-02-15] MEDS: ENOXAPARIN NA (PORCINE) 40 MG/0.4 ML DISP.SYRIN SQ SCH (09:20)
[2017-02-15] MEDS: LEVOTHYROXINE SODIUM 100 MCG VIAL IM SCH (09:21)
[2017-02-15 11:06] VITALS: BP 142/68; PULSE 88; TEMP 98.8
--- NOTE | 2017-02-15 11:26 | PN ---
Progress Note, Physician Chief Complaint: s/p gastric sleeve History of Present Illness: NAD, feels better, cleared by surgery to be discharged and f/u outpatient - Objective Vital Signs: Vital Signs Temperature 98.8 F 02/15/17 09:35 Pulse Rate 88 02/15/17 09:35 Respiratory Rate 20 02/15/17 09:35 Blood Pressure 142/68 02/15/17 09:35 O2 Sat by Pulse Oximetry (%) 96 02/14/17 21:00 Constitutional: Yes: Well Nourished, No Distress, Calm Cardiovascular: Yes: Regular Rate and Rhythm Respiratory: Yes: Regular Wound/Incision: Yes: Dressing Dry and Intact Neurological: Yes: Alert, Oriented Psychiatric: Yes: Alert, Oriented Labs: CBC, BMP 02/13/17 05:05 02/13/17 05:05 Problem List - Problems (1) S/P gastric surgery Assessment/Plan: -seen by GI surgery -feels better Code(s): Z98.890 - OTHER SPECIFIED POSTPROCEDURAL STATES (2) Morbid obesity due to excess calories Code(s): E66.01 - MORBID (SEVERE) OBESITY DUE TO EXCESS CALORIES (3) Postoperative abdominal pain Assessment/Plan: improved Code(s): R10.9 - UNSPECIFIED ABDOMINAL PAIN; G89.18 - OTHER ACUTE POSTPROCEDURAL PAIN Assessment/Plan see problem list
== END 2017-02-15 11:24 | disposition home or self-care (01) | DRG 621 ==
LOC: JSAMEDAYSX 11:27 → J4W 20:29
PROVIDERS: ADMIT Surgery; ATTEND Surgery
PROC: 0DB64Z3 Excision of Stomach, Percutaneous Endoscopic Approach, Vertical (ICD-10-PCS; principal; 2017-02-12 13:30)
PROC: 0F924ZX Drainage of Left Lobe Liver, Percutaneous Endoscopic Approach, Diagnostic (ICD-10-PCS; 2017-02-12 13:30)
PROC: 0DJ08ZZ Inspection of Upper Intestinal Tract, Via Natural or Artificial Opening Endoscopic (ICD-10-PCS; 2017-02-12 13:30)
DX: E66.01 Morbid (severe) obesity due to excess calories (principal); R16.0 Hepatomegaly, not elsewhere classified; Z68.38 Body mass index [BMI] 38.0-38.9, adult; E03.9 Hypothyroidism, unspecified
CPT/HCPCS: 36415; 74020-TC; 74241-TC; 80053; 84703; 85027; 86850; 86900; 86901; 88305-TC; 88307-TC; 93005; 93010; 94010; 94760

== ENCOUNTER 2020-10-28 08:13 | Observation (INO) | payer BC, OTHER ==
[2020-10-28 09:45] LABS: BASO % 1.8 % (0-2.0); EOS % 1.4 % (0-4.5); HEMATOCRIT 20.5 % (32.4-45.2); LYMPH % 30.1 % (8-40); MEAN CELL VOLUME 60.9 fl (80-96); MEAN PLT VOLUME 8.3 fl (7.5-11.1); NEUT % 59.7 % (42.8-82.8); PLATELET COUNT 295 10^3/uL (134-434); RBC 3.36 M/mm3 (3.60-5.2); RDW 18.6 % (11.6-15.6); WHITE BLOOD COUNT 2.8 K/mm3 (4.0-10.0)
[2020-10-28 09:51] LABS: MCH 17.1 pg (25.7-33.7)
[2020-10-28 09:54] LABS: HEMOGLOBIN 5.7 GM/dL (10.7-15.3); INR 1.16 (0.83-1.09); PROTHROMBIN TIME (PATIENT) 14.2 SEC (9.7-13.0)
[2020-10-28 09:57] LABS: ACTIVATED PTT 25.3 SECONDS (25.2-36.5)
[2020-10-28 10:04] LABS: ALBUMIN 3.6 g/dl (3.4-5.0); CALCIUM 8.4 mg/dL (8.5-10.1)
[2020-10-28 10:05] LABS: BLOOD UREA NITROGEN 12.7 mg/dL (7-18)
[2020-10-28 10:07] LABS: CREATININE 0.6 mg/dL (0.55-1.3)
[2020-10-28 10:09] LABS: BILIRUBIN,TOTAL 0.4 mg/dL (0.2-1); TOT PROT 7.5 g/dl (6.4-8.2)
[2020-10-28 15:16] LABS: ANISOCYTOSIS 1+; MACROCYTOSIS 0; OVALOCYTE 1+; PLATELET ESTIMATE NORMAL; TEAR DROP CELLS 1+
[2020-10-28] MEDS ORDERED: FERROUS SO4 325 MG TABLET (FP) ONE (18:50)
[2020-10-28] MEDS: FERROUS SO4 325 MG TABLET (FP) PO SCH (18:54)
[2020-10-28 22:42] VITALS: BMI 23.0
[2020-10-28] MEDS ORDERED: ACETAMINOPHEN 325 MG TABLET (FP) PO PRN (23:42)
[2020-10-29 00:50] LABS: HEMATOCRIT 28.9 % (32.4-45.2); HEMOGLOBIN 8.9 GM/dL (10.7-15.3); MCH 20.5 pg (25.7-33.7); MCHC 30.6 g/dl (32.0-36.0); MEAN CELL VOLUME 66.8 fl (80-96); MEAN PLT VOLUME 8.4 fl (7.5-11.1); PLATELET COUNT 299 10^3/uL (134-434); RBC 4.33 M/mm3 (3.60-5.2); RDW 25.1 % (11.6-15.6); WHITE BLOOD COUNT 6.4 K/mm3 (4.0-10.0)
[2020-10-29] MEDS ORDERED: PT OWN MED DRAWER 7, Y5N ONE (09:14)
[2020-10-29] MEDS: FERROUS SO4 325 MG TABLET (FP) PO SCH ×2 (09:24→13:20)
[2020-10-29] MEDS ORDERED: THYROID 30 MG TABLET PO SCH (10:00)
[2020-10-29 11:38] LABS: BASO % 1.1 % (0-2.0); EOS % 0.7 % (0-4.5); HEMATOCRIT 28.1 % (32.4-45.2); HEMOGLOBIN 8.6 GM/dL (10.7-15.3); LYMPH % 19.5 % (8-40); MCH 20.7 pg (25.7-33.7); MCHC 30.7 g/dl (32.0-36.0); MEAN CELL VOLUME 67.6 fl (80-96); MEAN PLT VOLUME 8.1 fl (7.5-11.1); MONO % 7.2 % (3.8-10.2); NEUT % 71.5 % (42.8-82.8); PLATELET COUNT 290 10^3/uL (134-434); RBC 4.16 M/mm3 (3.60-5.2); RDW 24.7 % (11.6-15.6); WHITE BLOOD COUNT 4.3 K/mm3 (4.0-10.0)
[2020-10-29 12:02] LABS: CALCIUM 8.7 mg/dL (8.5-10.1)
[2020-10-29 12:03] LABS: BLOOD UREA NITROGEN 11.9 mg/dL (7-18)
[2020-10-29 12:06] LABS: CREATININE 0.6 mg/dL (0.55-1.3)
[2020-10-29 13:50] VITALS: BP 115/66; PULSE 69; TEMP 98.7
== END 2020-10-29 14:48 | disposition home or self-care (01) ==
LOC: JER 08:13 → JERBED 10:13 → UNDOADMOB 10:13 → INTOOBSV 10:13 → JERBED 22:21 → J5S 22:21
PROVIDERS: ADMIT Internal Medicine; ATTEND Nurse Practitioner Acute Care
DX: D64.9 Anemia, unspecified (principal); Z98.84 Bariatric surgery status; Z91.013 Allergy to seafood; E03.9 Hypothyroidism, unspecified; Z85.43 Personal history of malignant neoplasm of ovary; N39.9 Disorder of urinary system, unspecified; Z90.79 Acquired absence of other genital organ(s)
CPT/HCPCS: 36415; 36430; 71046-TC-FY; 80048; 80053; 82272; 82728; 83540; 83550; 85025; 85027; 85610; 85730; 86850; 86900; 86901; 86922; 93005; 93010; 99285-25; C9803; G0378; P9058; U0003; U0005